=== PATIENT | male | born 1990 | race Caucasian/White ===

== ENCOUNTER 2018-06-14 20:29 | Emergency (ER) | payer MEDICAID, OTHER ==
[~2018-06-14] VITALS: Ht 185.4 cm; Wt 91.8 kg
[2018-06-14] MEDS ORDERED: methylPREDNISolone INJ 125 MG/2 ML VIAL (J2930) IM ONE (21:00)
[2018-06-14] MEDS ORDERED: diphenhydrAMINE INJ 50MG/ML VIAL (J1200) IM ONE (21:00)
[2018-06-14] MEDS ORDERED: PRED20TA PO (21:41)
[2018-06-14] MEDS ORDERED: predniSONE 20 MG TAB PO ONE (21:45)
[2018-06-14] MEDS ORDERED: diphenhydrAMINE 50 MG CAP PO ONE (21:45)
[2018-06-14 21:57] VITALS: BP 121/78
== END 2018-06-14 22:03 | disposition home or self-care (01) ==
LOC: M ED 20:29
DX: R21 Rash and other nonspecific skin eruption (principal); R22.0 Localized swelling, mass and lump, head; T78.40XA Allergy, unspecified, initial encounter; Z77.098 Contact with and (suspected) exposure to other hazardous, chiefly nonmedicinal, chemicals